=== PATIENT | male | born 1960 | race Hispanic/Latino ===

== ENCOUNTER 2022-12-01 07:46 | Observation (INO) | payer OTHER ==
[~2022-12-01] VITALS: Ht 180.3 cm; Wt 113.4 kg
[2022-12-01 09:32] LABS: BASOPHILS % (AUTO) 0.4 % (0.0-5.0); EOSINOPHILS % (AUTO) 1.1 % (0.0-8.0); HEMATOCRIT 36.6 % (42-54); LYMPHOCYTES % (AUTO) 21.8 % (21.0-51.0); MEAN CORPUSCULAR HEMOGLOBIN 28.8 pg (27.0-33.0); MEAN CORPUSCULAR VOLUME 82.4 fL (79-99); MONOCYTES % (AUTO) 5.1 % (3.0-13.0); NEUTROPHILS % (AUTO) 71.3 % (40.0-77.0); PLATELET COUNT (AUTO) 245 K/uL (130-400); RED BLOOD CELL COUNT(AUTO) 4.44 MIL/uL (4.50-6.20); RED CELL DISTRIBUTION WIDTH 13.7 % (11.0-15.5); WHITE BLOOD COUNT (AUTO) 7.5 K/uL (4.8-10.8)
[2022-12-01 09:57] LABS: INR 0.99 (0.85-1.15); POTASSIUM 3.9 mmol/L (3.5-5.1); PROTHROMBIN TIME 11.5 SEC (9.6-11.6)
[2022-12-01 09:58] LABS: PARTIAL THROMBOPLASTIN TIME 28.5 SEC (26.3-35.5)
[2022-12-01] MEDS ORDERED: 0.9%NACL 1000ML 1,000 ML IV ONE (10:00)
[2022-12-01] MEDS ORDERED: PANTOPRAZOLE 40 MG/VIAL IVP ONE (10:00)
[2022-12-01 10:01] LABS: ALBUMIN 3.8 g/dL (3.5-5.0); TOTAL PROTEIN, SERUM 7.3 g/dL (6.0-8.3)
[2022-12-01] MEDS ORDERED: PANTOPRAZOLE 40 MG/VIAL ONE (14:30)
[2022-12-01] MEDS ORDERED: IOHEXOL-350 75 ML VIAL IV ONE (15:42)
[2022-12-01] MEDS ORDERED: ONDANSETRON 4MG INJ IVP PRN (16:30)
[2022-12-01] MEDS ORDERED: LACTULOSE 20 GM/30 ML UDCUP PO PRN (16:30)
[2022-12-01] MEDS ORDERED: HYDROCODONE/ACETAMINOPHEN 5/325 MG TAB PO PRN (16:30)
[2022-12-01] MEDS ORDERED: HYDRALAZINE 20MG/ML VIAL IV PRN (16:30)
[2022-12-01] MEDS ORDERED: ACETAMINOPHEN 325 MG TAB PO PRN (16:30)
[2022-12-01] MEDS ORDERED: LACTATED RINGERS 1000ML 1,000 ML IV SCH (16:30)
[2022-12-01] MEDS ORDERED: LABETALOL 20MG SYG IV PRN (16:30)
[2022-12-01 17:22] LABS: HEMATOCRIT 35.3 % (42-54)
[2022-12-01] MEDS: PANTOPRAZOLE 40 MG TAB DR PO SCH (21:29)
[2022-12-01 22:35] LABS: HEMATOCRIT 34.1 % (42-54)
[2022-12-02 04:00] VITALS: BP 133/77
[2022-12-02 06:35] LABS: HEMATOCRIT 34.7 % (42-54); MEAN CORPUSCULAR HEMOGLOBIN 28.6 pg (27.0-33.0); MEAN CORPUSCULAR HGB CONC 34.3 g/dL (32.0-36.0); MEAN CORPUSCULAR VOLUME 83.4 fL (79-99); RED BLOOD CELL COUNT(AUTO) 4.16 MIL/uL (4.50-6.20); RED CELL DISTRIBUTION WIDTH 13.4 % (11.0-15.5)
[2022-12-02 06:55] LABS: % IRON SATURATION 21.7 % (30-44)
[2022-12-02 07:03] LABS: CREATININE 0.9 mg/dL (0.5-1.5); MAGNESIUM 2.3 mg/dL (1.80-2.40); PHOSPHORUS 3.2 mg/dL (2.5-4.9); POTASSIUM 3.7 mmol/L (3.5-5.1); THYROID STIMULATING HORMONE 1.38 uIU/mL (0.36-3.74)
[2022-12-02 08:00] VITALS: BP 135/71
[2022-12-02] MEDS: PANTOPRAZOLE 40 MG TAB DR PO SCH (08:58)
[2022-12-02 10:36] LABS: HEMATOCRIT 34.7 % (42-54)
[2022-12-02 11:30] VITALS: BP 124/88
[2022-12-02 16:00] VITALS: BP 151/93
[2022-12-02] MEDS ORDERED: PANT40TA PO (16:03)
== END 2022-12-02 17:25 | disposition home or self-care (01) ==
LOC: EDH 07:46 → EDHIP 16:12 → 3CH 12-02 00:26
PROVIDERS: ADMIT Internal Medicine; ATTEND Internal Medicine
DX: K92.1 Melena (principal); I73.9 Peripheral vascular disease, unspecified; Z79.899 Other long term (current) drug therapy
CPT/HCPCS: 96374; 96361; 99285; 80053; 85025; 85610; 85730; 85014 ×3; 85018 ×3; 86850; 86900; 86901; 82270; 36415 ×2; 74177; 84443; 83540; 83550; 83735; 84100; 80048; 85027; G0378 ×25; C9113; Q9967